=== PATIENT | male | born 1970 | race Caucasian/White ===

== ENCOUNTER 2016-03-09 17:54 | Emergency (ER) | payer SELFPAY ==
[~2016-03-09] VITALS: Ht 170.2 cm; Wt 81.8 kg
[2016-03-09 18:27] VITALS: Ht 170.2 cm; Wt 81.8 kg
[2016-03-09] MEDS ORDERED: ELIM TOP (18:30)
[2016-03-09] MEDS ORDERED: PERM1LIQ MC (18:37)
[2016-03-09] MEDS ORDERED: HYD25 PO (18:37)
--- NOTE | 2016-03-09 19:06 | ERD ---
ER Documentation Chief Complaint Date/Time DATE: 03/09/16 TIME: 18:59 Chief Complaint PT HERE FOR LICE CLERANCE HPI Patient is a 45-year-old male who presents to the ED for "lice clearance." He states that he was sent here from [facility], where another member had lice. He sent here to be cleared from life. He did not have any itchiness. No symptoms. He also states that he has high blood pressure and has not been treated for this. He does have an appointment with a primary care on Tuesday regarding his high blood pressure. He denies any headache or dizziness, chest pain, shortness of breath or difficulty breathing. He denies any weakness or blurry vision. He has no symptoms today. ROS All systems reviewed and are negative except as per history of present illness. Medications Home Meds Active Scripts Hydrochlorothiazide* (Hydrochlorothiazide*) 25 Mg Tab, 25 MG PO DAILY, #30 TAB Prov:LYNNETTE TORRES PA-C 03/09/16 Permethrin (Permethrin) 1 Gm Liquid, 1 GM MC BID for 7 Days Prov:LYNNETTE TORRES PA-C 03/09/16 Allergies Allergies: Coded Allergies: No Known Allergy (Unverified , 03/09/16) Physical Exam Vitals Vital Signs Date Time Temp Pulse Resp B/P Pulse Ox O2 Delivery O2 Flow Rate FiO2 03/09/16 18:27 82 18 184/120 97 Physical Exam GENERAL: Well-developed, well-nourished male. Appears in no acute distress. HEAD: Normocephalic, atraumatic. EYES: Pupils are equally reactive bilaterally. EOMs grossly intact. No conjunctival erythema. ENT: Moist mucous membranes. No uvula deviation. No kissing tonsils. No exudates. NECK: Supple. No lymphadenopathy or thyromegaly. No meningismus. negative kernig. negative brudinski. LUNG: Clear to auscultation bilaterally. No rhonchi, wheezing, rales or coarse breath sounds. HEART: Regular rate and rhythm. No murmurs, rubs or gallops. Extremities: Equal pulses bilaterally. No peripheral clubbing, cyanosis or edema. No unilateral leg swelling. NEUROLOGIC: Alert and oriented. Moving all four extremities. 5/5 strength in all extremities. Normal speech. Steady gait. CN 2 through 12 intact SKIN: Normal color. Warm and dry. No rashes or lesions. Capillary refill < 2 seconds Procedures/MDM ER COURSE: I kept the patient and/or family informed of laboratory and diagnostic imaging results throughout the emergency room course. MEDICAL DECISION MAKING: This is a 45-year-old male who presents with lice clearance. Vital signs were reviewed. Patient is afebrile. Patient is not hypoxic. Patient does not have lice. However I will be giving a prescription of permethrin to take home as preventative measures. He does not have any symptoms today he does have a high blood pressure and I have consulted with Dr. Yepez regarding his high blood pressure. I have low suspicion for hypertensive urgency, emergency or endorgan damage. Patient is asymptomatic today and will be following up with his primary care provider in 2 days. Patient does not need to be admitted regarding this at the time. Low suspicion for intracranial hemorrhage, meningitis, intracranial mass, concussion, temporal arteritis, stroke, elevated intracranial pressure, seizure. Assessment 1. Lice clearance 2. Hypertension DISCHARGE: At this time, patient is stable for discharge and outpatient management with no new complaints during the ER course. Patient was sent home with Permethrin and Hydrochlorthiazide. Patient will be discharged home with instructions to recheck for new or worsening symptoms such as fever, nausea, weakness, LOC and to follow up with primary care in the next 1-2 days. Patient was advised to return to the ER for any new or worsening symptoms. Plan was discussed and patient and/or family understands and agrees. Home instructions were given. Departure Diagnosis: Primary Impression: Screening for head lice Condition: Stable Patient Instructions: Head Lice Referrals: [facility] YOU HAVE RECEIVED A MEDICAL SCREENING EXAM AND THE RESULTS INDICATE THAT YOU DO NOT HAVE A CONDITION THAT REQUIRES URGENT TREATMENT IN THE EMERGENCY DEPARTMENT. FURTHER EVALUATION AND TREATMENT OF YOUR CONDITION CAN WAIT UNTIL YOU ARE SEEN IN YOUR DOCTORS OFFICE WITHIN THE NEXT 1-2 DAYS. IT IS YOUR RESPONSIBILITY TO MAKE AN APPOINTMENT FOR FOLOW-UP CARE. IF YOU HAVE A PRIMARY DOCTOR --you should call your primary doctor and schedule an appointment IF YOU DO NOT HAVE A PRIMARY DOCTOR YOU CAN CALL OUR PHYSICIAN REFERRAL HOTLINE AT IF YOU CAN NOT AFFORD TO SEE A PHYSICIAN YOU CAN CHOSE FROM THE FOLLOWING [facility] [address] [facility]. [facility] [address] [facility]. [facility] [address] [facility]. [facility] [address] [facility]. [facility] [address] [facility]. [facility] [address] Additional Instructions: Call your primary care doctor TOMORROW for an appointment during the next 1-2 days.See the doctor sooner or return here if your condition worsens before your appointment time. LYNNETTE TORRES PA-C Mar 09, 2016 19:06
== END 2016-03-09 18:44 | disposition home or self-care (01) ==
LOC: E/R 17:54
DX: Z20.7 Contact with and (suspected) exposure to pediculosis, acariasis and other infestations (principal); I10 Essential (primary) hypertension
CPT/HCPCS: 99283

== ENCOUNTER 2016-03-29 12:49 | Emergency (ER) | payer MEDICARE ==
[~2016-03-29] VITALS: Ht 172.7 cm; Wt 210.0 kg
[~2016-03-29 12:49] MED LIST: HYD25 PO; PERM1LIQ MC
[2016-03-29 12:53] VITALS: Ht 172.7 cm; Wt 210.0 kg
[2016-03-29 19:14] VITALS: TEMP 98
[2016-03-29] MEDS ORDERED: LORAZEPAM 0.5 MG TAB PO ONE (19:30)
[2016-03-29] MEDS ORDERED: NICARDipine HCL 30 MG CAPSULE PO ONE (19:30)
[2016-03-29 19:53] LABS: BASOPHILS % 0.3 % (0.0-2.0); EOSINOPHILS # 0.1 10^3/ul (0.0-0.5); EOSINOPHILS % 0.6 % (0.0-7.0); HEMATOCRIT 47.2 % (42.0-52.0); HEMOGLOBIN 16.1 g/dl (14.0-18.0); LYMPHOCYTES # 1.8 10^3/ul (0.8-2.9); LYMPHOCYTES % 19.1 % (15.0-51.0); MEAN CORPUSCULAR HEMOGLOBIN 29.3 pg (29.0-33.0); MEAN CORPUSCULAR HGB CONC 34.1 g/dl (32.0-37.0); MEAN PLATELET VOLUME 8.4 fl (7.4-10.4); MONOCYTE # 0.6 10^3/ul (0.3-0.9); MONOCYTES % 6.2 % (0.0-11.0); NEUTROPHILS % 73.8 % (39.0-77.0); PLATELET COUNT 221 10^3/UL (140-440); RED BLOOD COUNT 5.49 10^6/ul (4.70-6.10); UNCORRECTED WBC 9.4 10^3/ul (4.8-10.8); WHITE BLOOD COUNT 9.4 10^3/ul (4.8-10.8)
[2016-03-29 20:01] LABS: ALBUMIN 4.6 g/dl (3.3-4.9)
[2016-03-29 20:02] LABS: POTASSIUM 3.6 mmol/L (3.5-5.1)
[2016-03-29 20:03] LABS: CONDITION 1
[2016-03-29 20:04] LABS: BILIRUBIN,INDIRECT 0.4 mg/dl (0-1.1); BILIRUBIN,TOTAL 0.4 mg/dl (0.2-1.3); CREATININE 0.83 mg/dl (0.61-1.24)
[2016-03-29 20:05] LABS: ALBUMIN/GLOBULIN RATIO 1.48; CALCIUM 9.1 mg/dl (8.4-10.2); TOTAL PROTEIN 7.7 g/dl (6.1-8.1)
--- NOTE | 2016-03-29 20:06 | RADRPT ---
PROCEDURE: XR Chest. CLINICAL INDICATION: Shortness of breath TECHNIQUE: A single portable view of the chest was obtained. COMPARISON: None FINDINGS: The cardiomediastinal silhouette is within normal limits. The lungs and pleural spaces are clear. The soft tissues and osseous structures are unremarkable. IMPRESSION: No acute cardiopulmonary disease. RPTAT: HPNM Physician Syed Date Time Electronically viewed and signed by Joselito Eaton Physician on 03/29/2016 20:06 /
[2016-03-29] MEDS ORDERED: CLON-379 PO (20:10)
[2016-03-29] MEDS ORDERED: HYD25 PO (20:10)
[2016-03-29] MEDS ORDERED: ESCI5SOL PO (20:10)
[2016-03-29 20:17] LABS: TROPONIN-I 0.023 ng/ml (0.00-0.12)
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
[2016-03-29] MEDS ORDERED: hydrALAzine 20 MG INJ IV ONE ×2 (20:30→22:00)
[2016-03-29 22:51] VITALS: BP 150/95; PULSE 88; RESP 15
== END 2016-03-29 23:14 | disposition home or self-care (01) ==
LOC: E/R 12:49
DX: I10 Essential (primary) hypertension (principal); R40.2252 Coma scale, best verbal response, oriented, at arrival to emergency department; F32.1 Major depressive disorder, single episode, moderate; R40.2362 Coma scale, best motor response, obeys commands, at arrival to emergency department; R40.2142 Coma scale, eyes open, spontaneous, at arrival to emergency department; Z87.891 Personal history of nicotine dependence
CPT/HCPCS: 36415; 71010; 80053; 83690; 84484; 85025; 93005; 96374; 96375; 99291; J0360